=== PATIENT | male | born 1970 | race Caucasian/White ===

== ENCOUNTER 2017-04-17 15:46 | Emergency (ER) | payer MEDICARE, OTHER ==
[~2017-04-17] VITALS: Ht 172.7 cm; Wt 85.5 kg
[2017-04-17 15:48] VITALS: Ht 172.7 cm; Wt 85.5 kg
[2017-04-17] MEDS ORDERED: RISP4TAB38 PO (16:10)
--- NOTE | 2017-04-17 16:14 | ERD ---
ER Documentation Chief Complaint Date/Time DATE: 04/17/17 TIME: 16:12 Chief Complaint needs med refill on anxiety meds , unable to sleep HPI This 46-year-old male presents requesting a refill on his Risperdal for sleep and anxiety/depression. He was unable to make it to his psychiatrist this week due to getting caught in traffic. He has another appointment next week per denies any hallucinations, suicidal or homicidal ideations, cough, shortness breath or chest pain. ROS All systems reviewed and are negative except as per history of present illness. Medications Home Meds Active Scripts Risperidone* (Risperdal*) 4 Mg Tablet, 4 MG PO QHS, #10 TAB Prov:HERBERT JUARES MD 04/17/17 Allergies Allergies: Coded Allergies: No Known Allergy (Unverified , 04/17/17) PMhx/Soc Medical and Surgical Hx: pt denies Medical Hx History of Surgery: Yes (liver transplant) Hx Miscellaneous Medical Probl: Yes (insomnia anxiety) Hx Alcohol Use: No Hx Substance Use: No Hx Tobacco Use: No Smoking Status: Never smoker Physical Exam Vitals Vital Signs Date Time Temp Pulse Resp B/P Pulse Ox O2 Delivery O2 Flow Rate FiO2 04/17/17 15:48 97.7 86 18 135/91 98 Physical Exam Const: [] Alert, [id number]. Head: Atraumatic Eyes: Normal Conjunctiva ENT: Normal External Ears, Nose and Mouth. Neck: Full range of motion..~ No meningismus. Resp: Clear to auscultation bilaterally Cardio: Regular rate and rhythm, no murmurs Abd: Soft, non tender, non distended. Normal bowel sounds Skin: No petechiae or rashes Back: No midline or flank tenderness Ext: No cyanosis, or edema Neur: Awake and alert Psych: Anxious, but no apparent distress and acting appropriately. Procedures/MDM Patient will be given a short course of Risperdal 4 mg nightly until he can see a psychiatrist. There is no signs or symptoms of any psychiatric emergency. Patient is advised to otherwise recheck for new or worsening symptoms or psychiatrist as directed. Departure Diagnosis: Primary Impression: Encounter for medication refill Condition: Stable Patient Instructions: Taking Medicine Safely Additional Instructions: See primary doctor or psychiatrist as scheduled. HERBERT JUARES MD Apr 17, 2017 16:14
== END 2017-04-17 16:33 | disposition home or self-care (01) ==
LOC: FTE 15:46
DX: Z76.0 Encounter for issue of repeat prescription (principal)
CPT/HCPCS: 99281

== ENCOUNTER 2018-04-01 17:29 | Emergency (ER) | END 2018-04-01 22:58 | disposition left against medical advice (07) ==